=== PATIENT | male | born 1995 | race Two or more races ===

== ENCOUNTER 2021-11-24 07:46 | Emergency (ER) | payer SELFPAY ==
[~2021-11-24] VITALS: Ht 172.7 cm; Wt 99.8 kg
[2021-11-24] MEDS ORDERED: SODIUM CHLORIDE 0.9% 1,000 ML IV ONE (08:45)
[2021-11-24 09:11] LABS: Eosinophils # (auto) 0 10 ^3/uL (0-0.8); Monocytes # (auto) 0.8 10 ^3/uL (0-1.3); Neutrophils # (auto) 7.8 10 ^3/uL (1.6-8.6); Red Cell Distribution Width 18.3 % (11.8-14.3)
[2021-11-24 09:14] LABS: Basophils # (auto) 0 10 ^3/uL (0-0.2); Basophils % (auto) 0.5 % (0.0-2.0); Eosinophils % (auto) 0.1 % (0.0-7.0); Hematocrit 43.9 % (41.0-53.0); Hemoglobin 14.3 g/dL (13.5-17.5); Lymphocytes # (auto) 0.4 10 ^3/uL (0.4-5.4); Lymphocytes % (auto) 3.9 % (10.0-50.0); Mean Corpuscular Hgb Conc. 32.7 g/dL (32.0-36.0); Mean Corpuscular Volume 76.5 fL (80.0-100.0); Monocytes % (auto) 9.3 % (0.0-12.0); Neutrophils % (auto) 86.2 % (37.0-80.0); Red Blood Cells 5.73 10^6/uL (4.5-5.90); White Blood Cell 9.1 10^3/uL (4.4-10.8)
[2021-11-24 09:29] LABS: Albumin 3.9 g/dL (3.4-5.0); Calcium 8.6 mg/dL (8.5-10.1); Potassium 3.8 mmol/L (3.5-5.1)
[2021-11-24 09:32] LABS: Bilirubin, Total 0.2 mg/dL (0.2-1.0); Total Protein 7.7 g/dL (6.4-8.2)
[2021-11-24 12:00] VITALS: BP 119/65
[2021-11-24] MEDS ORDERED: OSEL75CA5 PO (12:24)
== END 2021-11-24 12:50 | disposition home or self-care (01) ==
LOC: ER 07:46 → EDBD 07:46 → ER 12:50
DX: J10.1 Influenza due to other identified influenza virus with other respiratory manifestations (principal)
CPT/HCPCS: 36415; 71045; 80053; 83880; 84484; 85025; 87070; 87804; 87880; 93005; 96360; 99285; J7030